=== PATIENT | female | born 1990 | race Caucasian/White ===

== ENCOUNTER 2016-12-08 17:14 | Emergency (ER) | payer OTHER | END 2016-12-08 17:52 | disposition home or self-care (01) | LOC: SCSER 17:14 | DX: S40.812A Abrasion of left upper arm, initial encounter (principal); S50.312A Abrasion of left elbow, initial encounter; T14.8XXA Other injury of unspecified body region, initial encounter; V43.62XA Car passenger injured in collision with other type car in traffic accident, initial encounter; W22.19XA Striking against or struck by other automobile airbag, initial encounter | CPT/HCPCS: 99283 ==